=== PATIENT | female | born 1980 | race Two or more races ===

== ENCOUNTER 2016-03-01 18:41 | Emergency (ER) | payer OTHER ==
[~2016-03-01] VITALS: Ht 165.1 cm; Wt 83.9 kg
[~2016-03-01 18:41] MED LIST: FLEXERIL10 MG PO; NAPROSYN500 MG PO
[2016-03-01] MEDS ORDERED: PERCOCET 5/31 TABLET PO (21:14)
[2016-03-01 21:51] VITALS: BP 120/79
== END 2016-03-01 21:51 | disposition home or self-care (01) ==
LOC: EME 18:41 → EXP 18:41
PROC: 2W38X1Z Immobilization of Right Upper Extremity using Splint (ICD-10-PCS; principal; 2016-03-01)
DX: S52.021A Displaced fracture of olecranon process without intraarticular extension of right ulna, initial encounter for closed fracture (principal); S80.02XA Contusion of left knee, initial encounter; W00.0XXA Fall on same level due to ice and snow, initial encounter; Y93.01 Activity, walking, marching and hiking
CPT/HCPCS: 73070; 73080; 73564; 99281; 99285; J3010

== ENCOUNTER 2016-03-09 13:46 | Day surgery (SDC) | payer OTHER ==
[~2016-03-09] VITALS: Ht 167.6 cm; Wt 83.0 kg
[~2016-03-09 13:46] MED LIST changes: +PERCOCET 5/31 TABLET PO
[2016-03-09 14:55] VITALS: BP 134/80
[2016-03-09 18:55] VITALS: BP 143/85
[2016-03-09 20:00] VITALS: BP 133/72
[2016-03-09 22:15] VITALS: BP 133/75
[2016-03-13 09:46] LABS: INTERNAL CONTROL VALID? YES
== END 2016-03-09 22:25 | disposition home or self-care (01) ==
LOC: SDC 13:46
PROVIDERS: Orthopaedic Surgery
PROC: 0PSK04Z Reposition Right Ulna with Internal Fixation Device, Open Approach (ICD-10-PCS; principal; 2016-03-09)
DX: S52.021A Displaced fracture of olecranon process without intraarticular extension of right ulna, initial encounter for closed fracture (principal); K21.9 Gastro-esophageal reflux disease without esophagitis
CPT/HCPCS: 73070; 76000; 84703; C1766; J0330; J0690; J1100; J1170; J2250; J2405; J2710; J2765; J3010; S0020

== ENCOUNTER 2016-05-14 09:52 | Emergency (ER) | payer OTHER ==
[~2016-05-14] VITALS: Ht 165.1 cm; Wt 82.9 kg
[2016-05-14 10:48] LABS: HEMATOCRIT 39.1 % (36.0-46.0); MCH 25.7 PG (29.0-34.0); MCHC 32.2 G/DL (30.0-36.0); MCV 79.6 FL (83-99); MEAN PLAT.VOLUME 11.1 uM^3 (9.5-12.4); PLATELET COUNT 211 K/uL (156-360); RBC DIS.WIDTH-CV 14.1 % (11.8-14.6); RBC DIS.WIDTH-SD 40.5 % (39-53); RED BLOOD COUNT 4.91 M/uL (3.80-5.20); WHITE BLOOD COUNT 8.6 K/uL (4.1-10.2)
[2016-05-14 11:23] LABS: TROP-I INTERPRETATION NEGATIVE; TROPONIN-I 0.01 ng/mL (0.0-0.30)
[2016-05-14 11:23] LABS: ALKALINE PHOSPHATASE 80 IU/L (3-129); ANION GAP 7 MEQ/L (2-14); CHLORIDE 104 MEQ/L (99-109); DIRECT BILIRUBIN 0.2 mg/dL (0.0-0.3); GFR ESTIMATE (CALCULATED) > 59 mL/min/; GLUCOSE 116 mg/dL (70-99); LIPASE 18 U/L (1.0-51.0); POTASSIUM 3.3 MEQ/L (3.7-5.4); SAMPLE HEMOLYSIS CHECK 0; SAMPLE ICTERIC CHECK 0; SAMPLE LIPEMIA CHECK 0; SODIUM 136 MEQ/L (136-147); TOTAL BILIRUBIN 0.6 MG/DL (0.0-1.0); UREA NITROGEN (BUN) 10 mg/dL (9-23)
[2016-05-14 16:00] VITALS: BP 95/75
[2016-05-14] MEDS ORDERED: ZOFRAN ODT4 MG PO (17:15)
[2016-05-14] MEDS ORDERED: PERCOCET 5/31 TABLET PO (17:15)
== END 2016-05-14 18:15 | disposition home or self-care (01) ==
LOC: EME 09:52
DX: K80.20 Calculus of gallbladder without cholecystitis without obstruction (principal); K21.9 Gastro-esophageal reflux disease without esophagitis
CPT/HCPCS: 71020; 74181; 76705; 80048; 80076; 83690; 84484; 85027; 93005; 99281; 99285; J2270; J2405

== ENCOUNTER 2016-06-16 05:48 | Day surgery (SDC) | payer OTHER ==
[~2016-06-16] VITALS: Ht 170.2 cm; Wt 83.9 kg
[~2016-06-16 05:48] MED LIST changes: +ZOFRAN ODT4 MG PO
[2016-06-16 06:19] VITALS: BP 126/85
[2016-06-16] MEDS ORDERED: PERCOCET 5/31 TABLET PO (09:08)
[2016-06-16] MEDS ORDERED: COLACE100 MG PO (09:08)
[2016-06-16 11:10] VITALS: BP 117/71
[2016-06-16 12:14] VITALS: BP 120/74
== END 2016-06-16 12:28 | disposition home or self-care (01) ==
LOC: SDC 05:48
PROC: 0FT44ZZ Resection of Gallbladder, Percutaneous Endoscopic Approach (ICD-10-PCS; principal; 2016-06-16)
DX: K80.10 Calculus of gallbladder with chronic cholecystitis without obstruction (principal); K21.9 Gastro-esophageal reflux disease without esophagitis; Z82.49 Family history of ischemic heart disease and other diseases of the circulatory system
CPT/HCPCS: 88304; J0131; J1100; J1170; J1885; J2250; J2405; J3010

== ENCOUNTER 2017-01-05 10:53 | Emergency (ER) | payer OTHER ==
[~2017-01-05] VITALS: Ht 170.2 cm; Wt 88.1 kg
[~2017-01-05 10:53] MED LIST changes: +COLACE100 MG PO
[2017-01-05 12:35] LABS: HEMATOCRIT 38.5 % (36.0-46.0); MCH 26.6 PG (29.0-34.0); MCV 80.5 FL (83-99); PLATELET COUNT 212 K/uL (156-360); RBC DIS.WIDTH-CV 13.7 % (11.8-14.6); RBC DIS.WIDTH-SD 39.7 % (39-53); RED BLOOD COUNT 4.78 M/uL (3.80-5.20); WHITE BLOOD COUNT 5.5 K/uL (4.1-10.2)
[2017-01-05 12:43] LABS: CHLORIDE 104 mEq/L (99-109); POTASSIUM 3.8 mEq/L (3.7-5.4); SODIUM 140 mEq/L (136-147)
[2017-01-05 12:45] LABS: GLUCOSE 100 mg/dL (70-99)
[2017-01-05 12:47] LABS: ANION GAP 12 MEQ/L (2-14)
[2017-01-05 12:49] LABS: GFR ESTIMATE (CALCULATED) > 59 mL/min/
[2017-01-05 12:50] LABS: UREA NITROGEN (BUN) 11 mg/dL (9-23)
[2017-01-05 12:53] LABS: TROP-I INTERPRETATION NEGATIVE; TROPONIN-I < 0.01 ng/mL (0.0-0.30)
[2017-01-05 12:57] LABS: QUANTITATIVE HCG < 4.0 MIU/ML
[2017-01-05 15:27] LABS: TROP-I INTERPRETATION NEGATIVE; TROPONIN-I < 0.01 ng/mL (0.0-0.30)
[2017-01-05] MEDS ORDERED: NAPROXEN500 MG PO (15:55)
[2017-01-05 16:18] VITALS: BP 121/83
== END 2017-01-05 16:20 | disposition home or self-care (01) ==
LOC: EME 10:53
PROVIDERS: Physician Assistant Medical
DX: M25.512 Pain in left shoulder (principal); M79.602 Pain in left arm; Z82.49 Family history of ischemic heart disease and other diseases of the circulatory system
CPT/HCPCS: 73030; 80048; 84484; 84702; 85027; 93005; 99281; 99284

== ENCOUNTER 2017-03-22 17:24 | Emergency (ER) | payer OTHER ==
[~2017-03-22] VITALS: Ht 170.2 cm; Wt 88.3 kg
[~2017-03-22 17:24] MED LIST changes: +NAPROXEN500 MG PO
[2017-03-22] MEDS ORDERED: FLEXERIL10 MG PO (21:53)
[2017-03-22 22:49] VITALS: BP 138/92
== END 2017-03-22 22:49 | disposition home or self-care (01) ==
LOC: EME 17:24
DX: S16.1XXA Strain of muscle, fascia and tendon at neck level, initial encounter (principal); K21.9 Gastro-esophageal reflux disease without esophagitis; V43.52XA Car driver injured in collision with other type car in traffic accident, initial encounter; Y92.410 Unspecified street and highway as the place of occurrence of the external cause
CPT/HCPCS: 72040; 99281; 99283

== ENCOUNTER 2017-10-05 23:48 | Emergency (ER) | payer BC ==
[~2017-10-05] VITALS: Ht 170.2 cm; Wt 87.5 kg
[2017-10-06 00:41] LABS: HEMATOCRIT 37.5 % (36.0-46.0); HEMOGLOBIN 12.5 G/DL (11.9-15.5); MCH 26.5 PG (29.0-34.0); MCHC 33.3 G/DL (30.0-36.0); MCV 79.4 FL (83-99); PLATELET COUNT 212 K/uL (156-360); RBC DIS.WIDTH-CV 13.2 % (11.8-14.6); RBC DIS.WIDTH-SD 37.7 % (39-53); RED BLOOD COUNT 4.72 M/uL (3.80-5.20); WHITE BLOOD COUNT 8.6 K/uL (4.1-10.2)
[2017-10-06 00:51] LABS: CHLORIDE 105 mEq/L (99-109); POTASSIUM 3.4 mEq/L (3.7-5.4); SODIUM 138 mEq/L (136-147)
[2017-10-06 00:52] LABS: GLUCOSE 109 mg/dL (70-99)
[2017-10-06 00:56] LABS: CREATININE 0.7 mg/dL (0.6-1.3); GFR ESTIMATE (CALCULATED) > 59 mL/min/
[2017-10-06 00:57] LABS: UREA NITROGEN (BUN) 10 mg/dL (9-23)
[2017-10-06 00:58] LABS: TROP-I INTERPRETATION NEGATIVE; TROPONIN-I < 0.01 ng/mL (0.0-0.30)
[2017-10-06] MEDS ORDERED: IBU600 MG PO (02:50)
[2017-10-06 03:28] VITALS: BP 139/50
== END 2017-10-06 03:29 | disposition home or self-care (01) ==
LOC: EME 23:48
DX: R07.9 Chest pain, unspecified (principal); K21.9 Gastro-esophageal reflux disease without esophagitis
CPT/HCPCS: 71046; 80048; 84484; 85027; 93005; 99281; 99283